=== PATIENT | male | born 1980 | race Caucasian/White ===

== ENCOUNTER 2023-05-02 18:46 | Emergency (ER) | payer BC, OTHER ==
[2023-05-02] MEDS ORDERED: Cephalexin 500 MG Cap PO ONE (19:21)
[2023-05-02] MEDS ORDERED: Diphtheria,Pertussis(Acell),Tetanus Vaccine 0.5 ML Syringe IM ONE (19:21)
[2023-05-02] MEDS ORDERED: Lidocaine 1% 5 ML VIAL INJECT ONE (19:21)
[2023-05-02] MEDS ORDERED: Ondansetron 4 MG/2 ML SDV ONE (20:30)
== END 2023-05-02 21:32 | disposition home or self-care (01) ==
LOC: DL.ED 18:46
DX: S61.313A Laceration without foreign body of left middle finger with damage to nail, initial encounter (principal); Z23 Encounter for immunization; W23.0XXA Caught, crushed, jammed, or pinched between moving objects, initial encounter
CPT/HCPCS: 12001; 90471; 90715; 99282; 99282-25; A9270-GY; J3490